=== PATIENT | male | born 1965 | race Caucasian/White ===

== ENCOUNTER 2021-09-29 09:45 | Day surgery (SDC) | payer OTHER ==
[2021-09-18 16:11] VITALS: BMI 39.0
[2021-09-29 11:34] VITALS: PULSE 89; TEMP 98.1
[2021-09-29 12:09] VITALS: BP 123/71
== END 2021-09-29 11:40 | disposition home or self-care (01) ==
LOC: FASU-ENDO 09:45
PROVIDERS: ATTEND Internal Medicine Gastroenterology
PROC: 0DB68ZX Excision of Stomach, Via Natural or Artificial Opening Endoscopic, Diagnostic (ICD-10-PCS; 2021-09-29)
PROC: 0DB48ZX Excision of Esophagogastric Junction, Via Natural or Artificial Opening Endoscopic, Diagnostic (ICD-10-PCS; 2021-09-29)
PROC: 0DB98ZX Excision of Duodenum, Via Natural or Artificial Opening Endoscopic, Diagnostic (ICD-10-PCS; principal; 2021-09-29 10:56)
DX: R10.13 Epigastric pain (principal)
CPT/HCPCS: 82962; 88305-TC; 88342-TC

== ENCOUNTER 2021-11-14 08:56 | Day surgery (SDC) | payer OTHER ==
[2021-11-10 15:10] VITALS: BMI 39.0
[2021-11-14 09:46] VITALS: TEMP 98.5
[2021-11-14 11:24] VITALS: BP 106/69; PULSE 84
== END 2021-11-14 11:25 | disposition home or self-care (01) ==
LOC: FASU-ENDO 08:56
PROVIDERS: ATTEND Internal Medicine Gastroenterology
PROC: 0DJD8ZZ Inspection of Lower Intestinal Tract, Via Natural or Artificial Opening Endoscopic (ICD-10-PCS; principal; 2021-11-14 10:32)
DX: Z12.11 Encounter for screening for malignant neoplasm of colon (principal); K57.30 Diverticulosis of large intestine without perforation or abscess without bleeding; K64.0 First degree hemorrhoids
CPT/HCPCS: 82962